=== PATIENT | female | born 1960 | race Caucasian/White ===

== ENCOUNTER 2017-08-12 09:51 | Emergency (ER) | payer MEDICARE ==
--- NOTE | 2017-08-12 11:11 | RAD ---
LEFT HIP 2 VIEWS: Date: 08/12/17 HISTORY: Injury, fall, left hip pain. FINDINGS/IMPRESSION: A left hip arthroplasty is present and in good position and alignment. No definite fracture or disloc ation is identified. POS: ISSAC
== END 2017-08-12 11:00 | disposition home or self-care (01) ==
LOC: ERS 09:51
DX: M62.838 Other muscle spasm (principal); E11.9 Type 2 diabetes mellitus without complications; E78.5 Hyperlipidemia, unspecified; I10 Essential (primary) hypertension; W01.0XXA Fall on same level from slipping, tripping and stumbling without subsequent striking against object, initial encounter

== ENCOUNTER 2019-06-28 13:08 | Outpatient (CLI) | payer MEDICARE ==
--- NOTE | 2019-07-10 19:59 | ULT ---
LOWER EXTREMITY ARTERIAL EVALUATION USING DOPPLER WAVEFORM ANALYSIS AND SEGMENTAL LIMB PRESSURES 06/28/19 INDICATION: Cellulitis and skin changes in both lower legs with history of diabetes, dyslipidemia and hypertensio n and no other symptoms. Right leg revealed slightly diminished waveform at the femoral level; however, the posterior tibial a nd dorsalis pedis waveforms were normal. The ankle-arm index was 1.17 mid DP. The posterior tibial co uld not be compressed suggesting calcification of this vessel. Toe-brachial index was normal. Left lower extremity demonstrates well preserved waveforms at all levels with an ankle-arm index of 1 .05. Toe-brachial index could not be obtained. Overall, the patient appears to have well preserved circulation to the lower extremities with some ca lcified vessels which could be consistent with her history of diabetes mellitus. Once again, overall circulation appears well preserved.
== END 2019-06-28 13:09 | disposition home or self-care (01) ==
LOC: ULT 13:08
PROVIDERS: ATTEND Family Medicine
DX: I73.9 Peripheral vascular disease, unspecified (principal); R60.9 Edema, unspecified
CPT/HCPCS: 93922

== ENCOUNTER 2020-03-31 10:23 | Outpatient (CLI) | payer MEDICARE ==
--- NOTE | 2020-04-07 09:50 | MMO ---
Bilateral MAMMO Bilat Screen [facility]. CLINICAL HISTORY: Patient is 59 years old and is seen for screening. The patient has no family history of breast cancer. The patient has a history of other cancer. VIEWS: The views performed were: bilateral craniocaudal with tomosynthesis and bilateral mediolateral oblique with tomosynthesis. FILMS COMPARED: The present examination has been compared to prior imaging studies performed at [facility] on 08/06/2009, at [facility] on 08/31/2005, and at [facility] on 11/05/2015 and 01/23/2017. This study has been interpreted with the assistance of computer-aided detection. MAMMOGRAM FINDINGS: The breasts are almost entirely fat. There is a new 15 mm mass density retroareolar right breast. In the left breast, there are no suspicious masses, calcifications or areas of architectural distortion. IMPRESSION: FINDING IN THE RIGHT BREAST REQUIRES ADDITIONAL EVALUATION. AN ULTRASOUND EXAM IS RECOMMENDED. THE RESULTS OF THIS EXAM WERE SENT TO THE PATIENT. ACR BI-RADS Category 0 - Incomplete: Need additional imaging evaluation. [facility] will notify the patient of the need for additional imaging services. MAMMOGRAPHY NOTE: 1. A negative mammogram report should not delay a biopsy if a dominant of clinically suspicious mass is present. 2. Approximately 10% to 15% of breast cancers are not detected by mammography. 3. Adenosis and dense breasts may obscure an underlying neoplasm. Reported by: DILLON DURON MD Electonically Signed: [id number]
== END 2020-03-31 10:24 | disposition home or self-care (01) ==
LOC: BICMAMMO 10:23
PROVIDERS: ATTEND Nurse Practitioner Family
DX: Z12.31 Encounter for screening mammogram for malignant neoplasm of breast (principal); N63.10 Unspecified lump in the right breast, unspecified quadrant; Z85.89 Personal history of malignant neoplasm of other organs and systems
CPT/HCPCS: 77063; 77067

== ENCOUNTER 2020-04-13 10:25 | Outpatient (CLI) | payer MEDICARE ==
--- NOTE | 2020-04-13 12:25 | ULT ---
RIGHT BREAST ULTRASOUND: Date: 04/13/2020 HISTORY: Abnormal mammogram of 03/31/2020. FINDINGS: Sonographic evaluation of the retroareolar aspect of the right breast demonstrates a 2.0 cm cyst earl esponding to the mammographic abnormality. IMPRESSION: BI-RADS Category 2 - Benign findings. Return to annual mammographic screening. POS: OFF
== END 2020-04-13 10:26 | disposition home or self-care (01) ==
LOC: BICULT 10:25
PROVIDERS: ATTEND Nurse Practitioner Family
DX: N63.10 Unspecified lump in the right breast, unspecified quadrant (principal)

== ENCOUNTER 2021-03-14 02:21 | Inpatient (IN) | payer MEDICARE ==
[2021-03-14 02:57] LABS: Actual Bicarbonate (HCO3a) 14.2 mEq/L (22-28); Analyzer IN Cardio ER; Base Excess (BEa) -9.1 mEq/L (-2.0 to +3.0); Calcium, Ionized (arterial) 1.14 mmol/L (1.12-1.30); Carboxyhemoglobin (COHb) 0.5 gm% (0.0-3.0); Hemoglobin (Hb) 16.8 g/dL (12.0-16.0); O2 Tension (PaO2), arterial 87.2 mmHg (> 80.0); Potassium - ABG Lab 6.19 mmol/L (3.70-5.30); pH, Arterial 7.36 (7.35-7.45)
[2021-03-14 02:59] LABS: CO2 Tension 25.8 mmHg (35.0-45.0)
[2021-03-14 03:00] LABS: Puncture Site LRA
[2021-03-14 03:02] LABS: Hemoglobin 17.5 g/dL (12.0-16.0); Mean Corpuscular HGB CONC 30.1 g/dL (32.0-36.0); Mean Corpuscular Hemoglobin 28.9 pg (27.0-31.0); Mean Platelet Volume 8.3 fL (7.4-10.4); Platelet Count 382 thou/uL (130-400); Red Blood Cell (RBC) Count 6.06 mill/uL (4.20-5.40)
[2021-03-14 03:12] LABS: Band 10 % (5-11); Lymphocytes 15 % (21-51); MDiff Complete? YES; Monocytes 9 % (0-10); Neutrophil 66 % (42-75)
[2021-03-14 03:24] LABS: ALT (SGPT) 19 U/L (8-55)
[2021-03-14 03:29] LABS: AST (SGOT) 66 U/L (5-34); Albumin 3.7 g/dL (3.4-4.8); Alkaline Phosphatase 137 U/L (40-110); Anion Gap 30 mmol/L (10-20); BUN (Urea Nitrogen) 62 mg/dL (9.8-20.1); Bilirubin, Total 0.7 mg/dL (0.2-1.2); Calc. Creatinine Clearance 0 mL/min (70-130); Calcium 9.6 mg/dL (7.8-10.44); Carbon Dioxide 12 mmol/L (23-31); Chloride 111 mmol/L (98-107); Globulin 3.9 g/dL (2.4-3.5); Glucose 156 mg/dL (80-115); Potassium 7.2 mmol/L (3.5-5.1); Protein, Total 7.6 g/dL (5.8-8.1); Sodium 146 mmol/L (136-145)
[2021-03-14 03:44] LABS: Bilirubin Moderate (Negative); Blood, Urine Large (Negative); Glucose, Urine (Dipstick) Negative (Negative); Ketone, Urine Trace mg/dL (Negative); Leukocyte Moderate (Negative); Nitrite Negative (Negative); Protein, Urine (Dipstick) > or equal to 300 mg/dL (Neg-Trace); Urobilinogen 0.2 mg/dL (Less than 2); pH, Urine 6.5 (5.0-9.0)
[2021-03-14 03:50] LABS: Clarity Extra Turbid (Clear); WBC/HPF Greater than 50 HPF (0-3)
[2021-03-14 03:51] LABS: Bacteria/HPF 4+ HPF (None Seen); Squamous Epithelial 0-3 HPF (0-3)
[2021-03-14] MEDS ORDERED: Calcium Gluc 4.6 MEQ/10 ML (100 MG/ML) ONE (03:53)
[2021-03-14] MEDS ORDERED: Dextrose 50% Abboject 50 ML SYRINGE ONE (03:53)
[2021-03-14] MEDS ORDERED: Insulin Regular 300 UNITS/3 ML VIAL ONE (03:53)
[2021-03-14] MEDS ORDERED: Sodium Bicarb 50 MEQ/50 ML Abboject 8.4% SYRINGE ONE (03:53)
[2021-03-14 04:08] LABS: CKMB 6.1 ng/mL (0-6.6)
[2021-03-14 04:27] LABS: Anion Gap 27 mmol/L (10-20); BUN (Urea Nitrogen) 66 mg/dL (9.8-20.1); Calc. Creatinine Clearance 0 mL/min (70-130); Calcium 9.7 mg/dL (7.8-10.44); Carbon Dioxide 15 mmol/L (23-31); Chloride 112 mmol/L (98-107); Glucose 168 mg/dL (80-115); Sodium 147 mmol/L (136-145)
[2021-03-14] MEDS ORDERED: Cefepime 2 GM VIAL ONE (04:28)
[2021-03-14 04:30] LABS: Potassium 6.7 mmol/L (3.5-5.1)
[2021-03-14] MEDS ORDERED: VANCOMYCIN 2 GRAM/400 ML BAG 2 GM in Premix Bag 1 BAG IVPB SCH (05:15)
[2021-03-14] MEDS ORDERED: Dextrose 5% in Water 1,000 ML IV PRN (05:24)
[2021-03-14] MEDS ORDERED: Dextrose 50% Abboject 50 ML SYRINGE SLOW IVP PRN (05:24)
[2021-03-14] MEDS ORDERED: Lactated Ringer's 1,000 ML IV SCH ×4 (05:45→16:45)
[2021-03-14 05:54] LABS: Troponin I 0.584 ng/mL (< 0.028)
[2021-03-14 06:15] LABS: Lactic Acid 2.2 mmol/L (0.5-2.2)
[2021-03-14 06:23] LABS: Anion Gap 20 mmol/L (10-20); BUN (Urea Nitrogen) 63 mg/dL (9.8-20.1); Calc. Creatinine Clearance 0 mL/min (70-130); Calcium 8.5 mg/dL (7.8-10.44); Carbon Dioxide 17 mmol/L (23-31); Chloride 115 mmol/L (98-107); Glucose 216 mg/dL (80-115); Potassium 5.5 mmol/L (3.5-5.1); Sodium 146 mmol/L (136-145)
[2021-03-14 06:26] LABS: SARS-CoV-2 NAA Rapid Test Not Detected (NotDetected)
[2021-03-14] MEDS ORDERED: Furosemide 40 MG/4 ML VIAL SLOW IVP SCH (08:30)
[2021-03-14] MEDS ORDERED: Pantoprazole 40 MG VIAL ONE (08:38)
[2021-03-14] MEDS ORDERED: Furosemide 40 MG/4 ML VIAL ONE (08:38)
[2021-03-14] MEDS: Pantoprazole 40 MG VIAL IVP SCH (08:52)
[2021-03-14] MEDS ORDERED: Enoxaparin Sodium 30 MG/0.3 ML SYRINGE ONE (08:59)
[2021-03-14] MEDS: Enoxaparin Sodium 30 MG/0.3 ML SYRINGE SC SCH (09:02)
[2021-03-14] MEDS ORDERED: HumaLOG 300 UNITS/3 ML VIAL ONE (09:11)
[2021-03-14] MEDS: HumaLOG 300 UNITS/3 ML VIAL SC PRN ×2 (09:14→19:51)
[2021-03-14] MEDS ORDERED: Acetaminophen 650 MG Suppository ONE (09:26)
[2021-03-14] MEDS: Acetaminophen 650 MG Suppository PR PRN ×2 (09:36→19:50)
[2021-03-14 10:18] LABS: Troponin I 1.012 ng/mL (< 0.028)
[2021-03-14] MEDS ORDERED: Vancomycin HCl 750 MG in Premix Bag 1 BAG IVPB SCH (10:30)
[2021-03-14 13:24] LABS: Anion Gap 20 mmol/L (10-20); BUN (Urea Nitrogen) 68 mg/dL (9.8-20.1); Calc. Creatinine Clearance 29 mL/min (70-130); Carbon Dioxide 17 mmol/L (23-31); Chloride 114 mmol/L (98-107); Glucose 206 mg/dL (80-115); Potassium 5.3 mmol/L (3.5-5.1); Sodium 146 mmol/L (136-145)
[2021-03-14 13:36] LABS: CKMB 39.1 ng/mL (0-6.6)
[2021-03-14 13:43] LABS: Actual Bicarbonate (HCO3a) 17.6 mEq/L (22-28); Base Excess (BEa) -6.2 mEq/L (-2.0 to +3.0); CO2 Tension 30.3 mmHg (35.0-45.0); Calcium, Ionized (arterial) 1.12 mmol/L (1.12-1.30); Carboxyhemoglobin (COHb) 0.6 gm% (0.0-3.0); Hemoglobin (Hb) 14.8 g/dL (12.0-16.0); Potassium - ABG Lab 5.26 mmol/L (3.70-5.30); pH, Arterial 7.38 (7.35-7.45)
[2021-03-14 13:52] LABS: O2 Tension (PaO2), arterial 58.1 mmHg (> 80.0)
[2021-03-14 13:53] LABS: ALV-art Gradient 189.225 mmHg (0-20); Puncture Site LRA
[2021-03-14 18:18] LABS: Anion Gap 26 mmol/L (10-20); BUN (Urea Nitrogen) 71 mg/dL (9.8-20.1); Calc. Creatinine Clearance 22 mL/min (70-130); Calcium 8.3 mg/dL (7.8-10.44); Carbon Dioxide 12 mmol/L (23-31); Chloride 113 mmol/L (98-107); Glucose 212 mg/dL (80-115); Potassium 6.3 mmol/L (3.5-5.1); Sodium 145 mmol/L (136-145)
[2021-03-14 19:07] LABS: Anion Gap 23 mmol/L (10-20); BUN (Urea Nitrogen) 74 mg/dL (9.8-20.1); Calc. Creatinine Clearance 22 mL/min (70-130); Calcium 8.6 mg/dL (7.8-10.44); Carbon Dioxide 15 mmol/L (23-31); Chloride 114 mmol/L (98-107); Glucose 245 mg/dL (80-115); Potassium 5.6 mmol/L (3.5-5.1); Sodium 146 mmol/L (136-145)
[2021-03-15] MEDS: HumaLOG 300 UNITS/3 ML VIAL SC PRN ×5 (00:28→23:56)
[2021-03-15] MEDS: Cefepime 2 GM in Sodium Chloride 0.9% 100 ML IVPB SCH (02:52)
[2021-03-15] MEDS ORDERED: VANCOMYCIN IVPB SCH (03:00)
[2021-03-15 07:09] LABS: Hemoglobin 15.2 g/dL (12.0-16.0); Mean Corpuscular Volume 96.6 fL (78.0-98.0); Mean Platelet Volume 8.7 fL (7.4-10.4); Platelet Count 192 thou/uL (130-400); RBC Distribution Width 12.9 % (11.5-14.5); Red Blood Cell (RBC) Count 5.07 mill/uL (4.20-5.40); White Blood Cell (WBC) Count 18.3 thou/uL (4.8-10.8)
[2021-03-15 07:23] LABS: ALT (SGPT) 145 U/L (8-55); AST (SGOT) 372 U/L (5-34); Albumin 3.1 g/dL (3.4-4.8); Alkaline Phosphatase 93 U/L (40-110); Anion Gap 20 mmol/L (10-20); BUN (Urea Nitrogen) 82 mg/dL (9.8-20.1); Bilirubin, Total 0.7 mg/dL (0.2-1.2); Calc. Creatinine Clearance 27 mL/min (70-130); Calcium 8.7 mg/dL (7.8-10.44); Carbon Dioxide 20 mmol/L (23-31); Chloride 115 mmol/L (98-107); Globulin 3.1 g/dL (2.4-3.5); Glucose 180 mg/dL (80-115); Potassium 5.4 mmol/L (3.5-5.1); Protein, Total 6.2 g/dL (5.8-8.1); Sodium 150 mmol/L (136-145)
[2021-03-15 07:40] LABS: #Lymphocytes 2.5 thou/uL (1.20-3.40); #Neutrophils 14.7 thou/uL (1.40-6.50); %Basophils 0.2 % (0.0-1.0); %Eosinophils 0.1 % (0.0-10.0); %Lymphocytes 13.5 % (21.0-51.0); %Monocytes 5.6 % (0.0-10.0); %Neutrophils 80.6 % (42.0-75.0); MDiff Complete? YES
[2021-03-15 07:41] LABS: Band 9 % (5-11); Eosinophils 1 % (0-10); Lymphocytes 17 % (21-51); Monocytes 3 % (0-10); Neutrophil 70 % (42-75); Platelet Morphology Comment Appears Adequate; RBC Morphology Normal
[2021-03-15] MEDS: Enoxaparin Sodium 30 MG/0.3 ML SYRINGE SC SCH (08:00)
[2021-03-15] MEDS: Pantoprazole 40 MG VIAL IVP SCH (08:00)
[2021-03-15] MEDS ORDERED: Nystatin Powder 15 GM BOT TOP PRN (09:39)
[2021-03-15] MEDS ORDERED: Lactated Ringer's 1,000 ML IV SCH (10:30)
[2021-03-15 11:28] LABS: Vancomycin, Random 18.4 ug/mL (See Comment)
[2021-03-15] MEDS ORDERED: Sodium Bicarbonate 150 MEQ in Dextrose 5% in Water 1,000 ML IV SCH (12:00)
[2021-03-15 15:17] LABS: Creatinine, Urine 46.64 mg/dL (47-110)
[2021-03-15] MEDS ORDERED: Sodium Chloride 0.9% 1,000 ML IV SCH (16:00)
[2021-03-15 16:42] LABS: Anion Gap 17 mmol/L (10-20); Calc. Creatinine Clearance 28 mL/min (70-130); Calcium 9.1 mg/dL (7.8-10.44); Carbon Dioxide 22 mmol/L (23-31); Chloride 115 mmol/L (98-107); Glucose 269 mg/dL (80-115); Potassium 4.9 mmol/L (3.5-5.1); Sodium 149 mmol/L (136-145)
[2021-03-15 16:45] LABS: BUN (Urea Nitrogen) 83 mg/dL (9.8-20.1)
[2021-03-15] MEDS: Dextrose 5% in Water 1,000 ML IV SCH (16:54)
[2021-03-15 17:04] LABS: CK (CPK) 5022 U/L (29-168)
[2021-03-15] MEDS ORDERED: Enoxaparin Sodium 40 MG/0.4 ML SYRINGE SC SCH (21:00)
[2021-03-15] MEDS: Sodium Bicarbonate 50 MEQ in Sodium Chloride 0.45% 1,000 ML IV SCH (22:10)
[2021-03-16] MEDS: Dextrose 5% in Water 1,000 ML IV SCH ×5 (02:02→20:45)
[2021-03-16] MEDS: Cefepime 2 GM in Sodium Chloride 0.9% 100 ML IVPB SCH (02:04)
[2021-03-16] MEDS: HumaLOG 300 UNITS/3 ML VIAL SC PRN ×3 (04:05→20:45)
[2021-03-16 04:23] LABS: #Lymphocytes 1.5 thou/uL (1.20-3.40); #Monocytes 0.9 thou/uL (0.11-0.59); #Neutrophils 12.1 thou/uL (1.40-6.50); %Basophils 0.2 % (0.0-1.0); %Eosinophils 0.1 % (0.0-10.0); %Lymphocytes 10.3 % (21.0-51.0); %Monocytes 6.3 % (0.0-10.0); %Neutrophils 83.1 % (42.0-75.0); Hemoglobin 13.3 g/dL (12.0-16.0); Mean Corpuscular HGB CONC 31.4 g/dL (32.0-36.0); Mean Corpuscular Hemoglobin 30.3 pg (27.0-31.0); Mean Corpuscular Volume 96.3 fL (78.0-98.0); Mean Platelet Volume 8.8 fL (7.4-10.4); Platelet Count 152 thou/uL (130-400); RBC Distribution Width 12.6 % (11.5-14.5); Red Blood Cell (RBC) Count 4.38 mill/uL (4.20-5.40); White Blood Cell (WBC) Count 14.6 thou/uL (4.8-10.8)
[2021-03-16 04:37] LABS: ALT (SGPT) 193 U/L (8-55); AST (SGOT) 305 U/L (5-34); Albumin 2.9 g/dL (3.4-4.8); Alkaline Phosphatase 87 U/L (40-110); Anion Gap 20 mmol/L (10-20); BUN (Urea Nitrogen) 75 mg/dL (9.8-20.1); Bilirubin, Total 0.6 mg/dL (0.2-1.2); Calc. Creatinine Clearance 32 mL/min (70-130); Calcium 8.4 mg/dL (7.8-10.44); Carbon Dioxide 23 mmol/L (23-31); Chloride 111 mmol/L (98-107); Globulin 2.9 g/dL (2.4-3.5); Glucose 219 mg/dL (80-115); Potassium 4.3 mmol/L (3.5-5.1); Protein, Total 5.8 g/dL (5.8-8.1); Sodium 150 mmol/L (136-145)
[2021-03-16 04:59] LABS: HBCM Index 0.04 S/CO (0-0.79); HBSAg Index 0.14 S/CO (0-0.99); HIV (1/2) Antibody/Antigen Non-Reactive (NonReactive); HIV 1/2 INDEX 0.11 S/CO (<1.00); Hep A IgM AB Non-Reactive (NonReactive); Hep A IgM S/CO 0.07 S/CO (0-0.79); Hep B Surf Ag Non-Reactive S/CO (NonReactive); Hep C IgG Ab Non-Reactive (NonReactive); Hep C Index 0.08 S/CO (0-0.79); Hepatitis B Core IgM Abs Non-Reactive (NonReactive)
[2021-03-16 05:21] LABS: Syphilis Antibody Nonreactive (Nonreactive); Syphilis Antibody Index 0.11 S/CO (<1.00 Non-Reactive)
[2021-03-16] MEDS: Enoxaparin Sodium 60 MG/0.6 ML SYRINGE SC SCH (07:15)
[2021-03-16] MEDS: Pantoprazole 40 MG VIAL IVP SCH (07:15)
[2021-03-16 08:05] LABS: Vancomycin, Random 12.4 ug/mL (See Comment)
[2021-03-16] MEDS ORDERED: DULoxetine 60 MG CAP PO SCH (09:00)
[2021-03-16] MEDS ORDERED: Vancomycin 1 GM in Premix Bag 1 BAG IVPB SCH (11:00)
[2021-03-16 14:31] LABS: Anion Gap 16 mmol/L (10-20); BUN (Urea Nitrogen) 68 mg/dL (9.8-20.1); Calc. Creatinine Clearance 35 mL/min (70-130); Calcium 7.9 mg/dL (7.8-10.44); Carbon Dioxide 24 mmol/L (23-31); Chloride 109 mmol/L (98-107); Glucose 272 mg/dL (80-115); Sodium 145 mmol/L (136-145)
[2021-03-16] MEDS: Sodium Bicarbonate 50 MEQ in Sodium Chloride 0.45% 1,000 ML IV SCH (19:44)
[2021-03-16 20:17] LABS: Anion Gap 14 mmol/L (10-20); BUN (Urea Nitrogen) 64 mg/dL (9.8-20.1); Calc. Creatinine Clearance 39 mL/min (70-130); Calcium 7.8 mg/dL (7.8-10.44); Carbon Dioxide 26 mmol/L (23-31); Chloride 107 mmol/L (98-107); Glucose 286 mg/dL (80-115); Potassium 3.7 mmol/L (3.5-5.1); Sodium 143 mmol/L (136-145)
[2021-03-17] MEDS: HumaLOG 300 UNITS/3 ML VIAL SC PRN ×5 (00:42→23:55)
[2021-03-17] MEDS: Cefepime 2 GM in Sodium Chloride 0.9% 100 ML IVPB SCH (02:42)
[2021-03-17 04:44] LABS: ALT (SGPT) 156 U/L (8-55); AST (SGOT) 159 U/L (5-34); Albumin 2.5 g/dL (3.4-4.8); Alkaline Phosphatase 78 U/L (40-110); Anion Gap 15 mmol/L (10-20); BUN (Urea Nitrogen) 57 mg/dL (9.8-20.1); Bilirubin, Total 0.5 mg/dL (0.2-1.2); CK (CPK) 1350 U/L (29-168); Calc. Creatinine Clearance 46 mL/min (70-130); Calcium 7.9 mg/dL (7.8-10.44); Carbon Dioxide 24 mmol/L (23-31); Chloride 107 mmol/L (98-107); Globulin 2.5 g/dL (2.4-3.5); Glucose 205 mg/dL (80-115); Potassium 3.5 mmol/L (3.5-5.1); Sodium 142 mmol/L (136-145)
[2021-03-17 04:45] LABS: #Eosinphils 0.1 thou/uL (0.0-0.7); #Lymphocytes 1.4 thou/uL (1.20-3.40); #Monocytes 0.6 thou/uL (0.11-0.59); #Neutrophils 6.9 thou/uL (1.40-6.50); %Eosinophils 1.4 % (0.0-10.0); %Lymphocytes 15.6 % (21.0-51.0); %Monocytes 6.5 % (0.0-10.0); %Neutrophils 76.5 % (42.0-75.0); Hemoglobin 11.5 g/dL (12.0-16.0); Mean Corpuscular HGB CONC 32.5 g/dL (32.0-36.0); Mean Corpuscular Hemoglobin 30.8 pg (27.0-31.0); Mean Corpuscular Volume 94.7 fL (78.0-98.0); Mean Platelet Volume 9.1 fL (7.4-10.4); Platelet Count 133 thou/uL (130-400); RBC Distribution Width 12.3 % (11.5-14.5); Red Blood Cell (RBC) Count 3.72 mill/uL (4.20-5.40); White Blood Cell (WBC) Count 9.1 thou/uL (4.8-10.8)
[2021-03-17] MEDS: Sodium Bicarbonate 50 MEQ in Sodium Chloride 0.45% 1,000 ML IV SCH ×2 (05:34→19:54)
[2021-03-17] MEDS: Pantoprazole 40 MG VIAL IVP SCH (07:16)
[2021-03-17] MEDS: Enoxaparin Sodium 60 MG/0.6 ML SYRINGE SC SCH (07:16)
[2021-03-17] MEDS: Dextrose 5% in Water 1,000 ML IV SCH ×2 (07:17→19:54)
[2021-03-17 11:17] LABS: Vancomycin, Random 17.9 ug/mL (See Comment)
[2021-03-17] MEDS ORDERED: Vancomycin 1 GM in Premix Bag 1 BAG IVPB SCH (13:00)
[2021-03-18] MEDS: Dextrose 5% in Water 1,000 ML IV SCH (03:36)
[2021-03-18] MEDS: Sodium Bicarbonate 50 MEQ in Sodium Chloride 0.45% 1,000 ML IV SCH (03:37)
[2021-03-18] MEDS: Cefepime 2 GM in Sodium Chloride 0.9% 100 ML IVPB SCH (03:37)
[2021-03-18 04:12] LABS: #Eosinphils 0.2 thou/uL (0.0-0.7); #Lymphocytes 0.9 thou/uL (1.20-3.40); #Monocytes 0.5 thou/uL (0.11-0.59); %Basophils 0.3 % (0.0-1.0); %Lymphocytes 10.1 % (21.0-51.0); %Monocytes 6.1 % (0.0-10.0); %Neutrophils 81.6 % (42.0-75.0); Hemoglobin 11.5 g/dL (12.0-16.0); Mean Corpuscular HGB CONC 32.7 g/dL (32.0-36.0); Mean Corpuscular Hemoglobin 30.5 pg (27.0-31.0); Mean Corpuscular Volume 93.4 fL (78.0-98.0); Mean Platelet Volume 9.1 fL (7.4-10.4); Platelet Count 161 thou/uL (130-400); RBC Distribution Width 12.1 % (11.5-14.5); Red Blood Cell (RBC) Count 3.78 mill/uL (4.20-5.40); White Blood Cell (WBC) Count 8.6 thou/uL (4.8-10.8)
[2021-03-18 04:32] LABS: ALT (SGPT) 121 U/L (8-55); AST (SGOT) 101 U/L (5-34); Albumin 2.7 g/dL (3.4-4.8); Alkaline Phosphatase 81 U/L (40-110); Anion Gap 12 mmol/L (10-20); BUN (Urea Nitrogen) 44 mg/dL (9.8-20.1); Bilirubin, Total 0.5 mg/dL (0.2-1.2); CK (CPK) 1292 U/L (29-168); Calc. Creatinine Clearance 55 mL/min (70-130); Carbon Dioxide 29 mmol/L (23-31); Chloride 102 mmol/L (98-107); Globulin 2.5 g/dL (2.4-3.5); Glucose 180 mg/dL (80-115); Potassium 3.3 mmol/L (3.5-5.1); Protein, Total 5.2 g/dL (5.8-8.1); Sodium 140 mmol/L (136-145)
[2021-03-18] MEDS: HumaLOG 300 UNITS/3 ML VIAL SC PRN ×2 (04:54→22:57)
[2021-03-18] MEDS: Pantoprazole 40 MG VIAL IVP SCH (07:34)
[2021-03-18] MEDS: Enoxaparin Sodium 60 MG/0.6 ML SYRINGE SC SCH (07:34)
[2021-03-18] MEDS: DULoxetine 30 MG CAP PO SCH (07:34)
[2021-03-18] MEDS: D5 1/2 NS w/20 mEq KCL 1,000 ML IV SCH ×3 (07:39→22:58)
[2021-03-18] MEDS ORDERED: Non-Formulary Item 1 EACH (Dulaglutide [Trulicity] 0.75 MG/0.5 ML Pen.Injctr) SC SCH (10:30)
[2021-03-18] MEDS ORDERED: Losartan 25 MG TAB PO SCH (10:30)
[2021-03-18 19:24] LABS: Anion Gap 13 mmol/L (10-20); BUN (Urea Nitrogen) 37 mg/dL (9.8-20.1); Calc. Creatinine Clearance 59 mL/min (70-130); Calcium 8.9 mg/dL (7.8-10.44); Carbon Dioxide 24 mmol/L (23-31); Chloride 105 mmol/L (98-107); Glucose 289 mg/dL (80-115); Potassium 4.3 mmol/L (3.5-5.1); Sodium 138 mmol/L (136-145)
[2021-03-19] MEDS: HumaLOG 300 UNITS/3 ML VIAL SC PRN ×3 (04:55→21:46)
[2021-03-19] MEDS: D5 1/2 NS w/20 mEq KCL 1,000 ML IV SCH ×4 (06:06→21:44)
[2021-03-19] MEDS ORDERED: Losartan 25 MG TAB PO SCH (09:00)
[2021-03-19 09:44] LABS: #Eosinphils 0.2 thou/uL (0.0-0.7); #Lymphocytes 0.9 thou/uL (1.20-3.40); #Monocytes 0.7 thou/uL (0.11-0.59); #Neutrophils 5.6 thou/uL (1.40-6.50); %Basophils 0.3 % (0.0-1.0); %Eosinophils 2.9 % (0.0-10.0); %Lymphocytes 11.6 % (21.0-51.0); %Monocytes 9.5 % (0.0-10.0); %Neutrophils 75.6 % (42.0-75.0); Hemoglobin 11.9 g/dL (12.0-16.0); Mean Corpuscular HGB CONC 34.2 g/dL (32.0-36.0); Mean Corpuscular Volume 93.5 fL (78.0-98.0); Mean Platelet Volume 8.9 fL (7.4-10.4); Platelet Count 181 thou/uL (130-400); RBC Distribution Width 12.3 % (11.5-14.5); Red Blood Cell (RBC) Count 3.73 mill/uL (4.20-5.40); White Blood Cell (WBC) Count 7.4 thou/uL (4.8-10.8)
[2021-03-19] MEDS: Pantoprazole 40 MG VIAL IVP SCH (09:50)
[2021-03-19] MEDS: Enoxaparin Sodium 60 MG/0.6 ML SYRINGE SC SCH (09:50)
[2021-03-19] MEDS: Amlodipine 5 MG TAB PO SCH (09:52)
[2021-03-19] MEDS: DULoxetine 30 MG CAP PO SCH (09:53)
[2021-03-19 10:14] LABS: ALT (SGPT) 80 U/L (8-55); AST (SGOT) 58 U/L (5-34); Albumin 2.6 g/dL (3.4-4.8); Alkaline Phosphatase 88 U/L (40-110); Anion Gap 10 mmol/L (10-20); BUN (Urea Nitrogen) 36 mg/dL (9.8-20.1); Bilirubin, Total 0.6 mg/dL (0.2-1.2); CK (CPK) 375 U/L (29-168); Calc. Creatinine Clearance 64 mL/min (70-130); Calcium 8.3 mg/dL (7.8-10.44); Carbon Dioxide 29 mmol/L (23-31); Chloride 104 mmol/L (98-107); Globulin 2.6 g/dL (2.4-3.5); Glucose 247 mg/dL (80-115); Protein, Total 5.2 g/dL (5.8-8.1); Sodium 139 mmol/L (136-145)
[2021-03-19 14:04] LABS: Phosphorus 2.1 mg/dL (2.3-4.7)
[2021-03-19 19:42] LABS: Amphetamine Not Detected (NotDetected); Barbiturates Screen Not Detected (NotDetected); Benzodiazepine Screen Not Detected (NotDetected); Cocaine Metabolite Screen Not Detected (NotDetected); Methadone Not Detected (NotDetected); Methamphetamine Not Detected (NotDetected); Opiate Screen Not Detected (NotDetected); Oxycodone Screen Not Detected (NotDetected); Phencyclidine (PCP) Not Detected (NotDetected); THC/Cannabinoid Screen Not Detected (NotDetected); Tricyclic Screen Not Detected (NotDetected)
[2021-03-20] MEDS: HumaLOG 300 UNITS/3 ML VIAL SC PRN ×5 (00:53→16:34)
[2021-03-20 05:14] LABS: Anion Gap 11 mmol/L (10-20); BUN (Urea Nitrogen) 30 mg/dL (9.8-20.1); Calc. Creatinine Clearance 70 mL/min (70-130); Calcium 7.5 mg/dL (7.8-10.44); Carbon Dioxide 26 mmol/L (23-31); Chloride 107 mmol/L (98-107); Glucose 265 mg/dL (80-115); Potassium 4.6 mmol/L (3.5-5.1); Sodium 139 mmol/L (136-145)
[2021-03-20] MEDS: Enoxaparin Sodium 60 MG/0.6 ML SYRINGE SC SCH (09:59)
[2021-03-20] MEDS: D5 1/2 NS w/20 mEq KCL 1,000 ML IV SCH (09:59)
[2021-03-20] MEDS: Pantoprazole 40 MG VIAL IVP SCH (09:59)
[2021-03-20] MEDS: Amlodipine 5 MG TAB PO SCH (10:00)
[2021-03-20] MEDS: DULoxetine 30 MG CAP PO SCH (10:00)
[2021-03-20] MEDS ORDERED: Lorazepam 2 MG/ML VIAL SLOW IVP SCH (10:30)
[2021-03-20 16:38] LABS: Troponin I 0.024 ng/mL (< 0.028)
[2021-03-21] MEDS: D5 1/2 NS w/20 mEq KCL 1,000 ML IV SCH ×3 (01:04→14:53)
[2021-03-21] MEDS: HumaLOG 300 UNITS/3 ML VIAL SC PRN ×3 (07:22→17:23)
[2021-03-21 08:02] LABS: #Eosinphils 0.3 thou/uL (0.0-0.7); #Lymphocytes 1.5 thou/uL (1.20-3.40); #Monocytes 0.7 thou/uL (0.11-0.59); %Basophils 0.5 % (0.0-1.0); %Eosinophils 4.1 % (0.0-10.0); %Lymphocytes 23.2 % (21.0-51.0); %Neutrophils 62.2 % (42.0-75.0); Mean Corpuscular HGB CONC 33.9 g/dL (32.0-36.0); Mean Corpuscular Hemoglobin 31.2 pg (27.0-31.0); Mean Corpuscular Volume 92.2 fL (78.0-98.0); Mean Platelet Volume 8.8 fL (7.4-10.4); Platelet Count 244 thou/uL (130-400); RBC Distribution Width 12.2 % (11.5-14.5); Red Blood Cell (RBC) Count 3.86 mill/uL (4.20-5.40); White Blood Cell (WBC) Count 6.5 thou/uL (4.8-10.8)
[2021-03-21 08:28] LABS: Anion Gap 13 mmol/L (10-20); BUN (Urea Nitrogen) 28 mg/dL (9.8-20.1); Calc. Creatinine Clearance 67 mL/min (70-130); Calcium 8.8 mg/dL (7.8-10.44); Carbon Dioxide 25 mmol/L (23-31); Chloride 107 mmol/L (98-107); Glucose 223 mg/dL (80-115); Potassium 4.5 mmol/L (3.5-5.1); Sodium 140 mmol/L (136-145)
[2021-03-21] MEDS: Pantoprazole 40 MG VIAL IVP SCH (09:41)
[2021-03-21] MEDS: Enoxaparin Sodium 60 MG/0.6 ML SYRINGE SC SCH (09:41)
[2021-03-21] MEDS: Amlodipine 5 MG TAB PO SCH (09:42)
[2021-03-21] MEDS: DULoxetine 30 MG CAP PO SCH (09:42)
[2021-03-21] MEDS: Lorazepam 2 MG/ML VIAL SLOW IVP SCH ×3 (10:22→21:48)
[2021-03-21 17:21] LABS: SARS-CoV-2 PCR by NAA Not Detected (NotDetected)
[2021-03-22] MEDS: D5 1/2 NS w/20 mEq KCL 1,000 ML IV SCH (01:50)
[2021-03-22] MEDS: HumaLOG 300 UNITS/3 ML VIAL SC PRN (04:08)
[2021-03-22] MEDS: hydrALAZINE 20 MG/ML VIAL SLOW IVP PRN ×2 (04:08→09:06)
[2021-03-22 06:02] LABS: Anion Gap 16 mmol/L (10-20); BUN (Urea Nitrogen) 25 mg/dL (9.8-20.1); Calc. Creatinine Clearance 67 mL/min (70-130); Carbon Dioxide 21 mmol/L (23-31); Chloride 108 mmol/L (98-107); Glucose 217 mg/dL (80-115); Potassium 5.2 mmol/L (3.5-5.1); Sodium 140 mmol/L (136-145)
[2021-03-22] MEDS: Enoxaparin Sodium 60 MG/0.6 ML SYRINGE SC SCH (09:01)
[2021-03-22] MEDS: Pantoprazole 40 MG VIAL IVP SCH (09:02)
[2021-03-22] MEDS: Lorazepam 2 MG/ML VIAL SLOW IVP SCH ×3 (09:03→21:40)
[2021-03-22] MEDS: Amlodipine 5 MG TAB PO SCH (09:05)
[2021-03-22] MEDS: DULoxetine 30 MG CAP PO SCH (09:05)
[2021-03-22] MEDS: Sodium Bicarbonate Tab 325 MG TAB PO SCH ×2 (10:12→21:40)
[2021-03-22] MEDS ORDERED: Amlodipine 5 MG TAB PER TUBE SCH (11:00)
[2021-03-22] MEDS ORDERED: Metoprolol Tartrate 50 MG TAB PER TUBE SCH (11:00)
[2021-03-22] MEDS: Metoprolol Tartrate 50 MG TAB PER TUBE SCH (21:40)
[2021-03-23 09:33] LABS: Anion Gap 15 mmol/L (10-20); BUN (Urea Nitrogen) 28 mg/dL (9.8-20.1); Calc. Creatinine Clearance 56 mL/min (70-130); Calcium 9.4 mg/dL (7.8-10.44); Carbon Dioxide 26 mmol/L (23-31); Chloride 107 mmol/L (98-107); Glucose 192 mg/dL (80-115); Potassium 4.6 mmol/L (3.5-5.1); Sodium 143 mmol/L (136-145)
[2021-03-23] MEDS: Amlodipine 5 MG TAB PER TUBE SCH (10:56)
[2021-03-23] MEDS: Lorazepam 2 MG/ML VIAL SLOW IVP SCH ×3 (10:57→21:33)
[2021-03-23] MEDS: DULoxetine 30 MG CAP PO SCH (10:57)
[2021-03-23] MEDS: Metoprolol Tartrate 50 MG TAB PER TUBE SCH ×2 (10:58→21:33)
[2021-03-23] MEDS: Sodium Bicarbonate Tab 325 MG TAB PO SCH ×2 (10:58→21:33)
[2021-03-23] MEDS: Pantoprazole 40 MG VIAL IVP SCH (11:10)
[2021-03-23] MEDS: Enoxaparin Sodium 60 MG/0.6 ML SYRINGE SC SCH (11:11)
[2021-03-23] MEDS: HumaLOG 300 UNITS/3 ML VIAL SC PRN (18:54)
[2021-03-23] MEDS: Enoxaparin Sodium 40 MG/0.4 ML SYRINGE SC SCH (21:32)
[2021-03-24 05:31] LABS: Anion Gap 15 mmol/L (10-20); BUN (Urea Nitrogen) 31 mg/dL (9.8-20.1); Calc. Creatinine Clearance 53 mL/min (70-130); Calcium 8.7 mg/dL (7.8-10.44); Carbon Dioxide 21 mmol/L (23-31); Chloride 108 mmol/L (98-107); Glucose 182 mg/dL (80-115); Potassium 4.5 mmol/L (3.5-5.1); Sodium 139 mmol/L (136-145)
[2021-03-24] MEDS: Sodium Bicarbonate 50 MEQ in Sodium Chloride 0.45% 1,000 ML IV SCH ×2 (06:40→18:36)
[2021-03-24] MEDS: DULoxetine 30 MG CAP PO SCH (07:20)
[2021-03-24] MEDS: Metoprolol Tartrate 50 MG TAB PER TUBE SCH ×2 (07:20→21:08)
[2021-03-24] MEDS: Amlodipine 5 MG TAB PER TUBE SCH (07:20)
[2021-03-24] MEDS: Sodium Bicarbonate Tab 325 MG TAB PO SCH ×2 (07:21→21:08)
[2021-03-24 09:15] VITALS: BMI 41.6
[2021-03-24] MEDS: Enoxaparin Sodium 40 MG/0.4 ML SYRINGE SC SCH ×2 (09:25→21:13)
[2021-03-24] MEDS: Lorazepam 2 MG/ML VIAL SLOW IVP SCH ×3 (09:26→21:10)
[2021-03-24] MEDS: Pantoprazole 40 MG VIAL IVP SCH (09:26)
[2021-03-25] MEDS: HumaLOG 300 UNITS/3 ML VIAL SC PRN ×2 (01:13→17:41)
[2021-03-25] MEDS ORDERED: Amlodipine 10 MG TAB PO SCH ×2 (06:15→09:00)
[2021-03-25 06:59] LABS: Platelet Count 252 thou/uL (130-400)
[2021-03-25 07:24] LABS: Anion Gap 12 mmol/L (10-20); BUN (Urea Nitrogen) 29 mg/dL (9.8-20.1); Calc. Creatinine Clearance 56 mL/min (70-130); Calcium 8.4 mg/dL (7.8-10.44); Carbon Dioxide 25 mmol/L (23-31); Chloride 109 mmol/L (98-107); Glucose 140 mg/dL (80-115); Sodium 142 mmol/L (136-145)
[2021-03-25] MEDS: Sodium Bicarbonate Tab 325 MG TAB PO SCH ×2 (09:18→20:09)
[2021-03-25] MEDS: DULoxetine 30 MG CAP PO SCH (09:19)
[2021-03-25] MEDS: Enoxaparin Sodium 40 MG/0.4 ML SYRINGE SC SCH ×2 (09:19→20:08)
[2021-03-25] MEDS: Lorazepam 2 MG/ML VIAL SLOW IVP SCH ×3 (09:19→20:08)
[2021-03-25] MEDS: Pantoprazole 40 MG VIAL IVP SCH (09:19)
[2021-03-25] MEDS: hydrALAZINE 20 MG/ML VIAL SLOW IVP PRN (20:08)
[2021-03-26] MEDS: Pantoprazole 40 MG VIAL IVP SCH (08:50)
[2021-03-26] MEDS: Enoxaparin Sodium 40 MG/0.4 ML SYRINGE SC SCH ×2 (08:50→20:09)
[2021-03-26] MEDS: DULoxetine 30 MG CAP PO SCH (08:50)
[2021-03-26] MEDS: Amlodipine 10 MG TAB PO SCH (08:51)
[2021-03-26] MEDS: Lorazepam 2 MG/ML VIAL SLOW IVP SCH (08:51)
[2021-03-26] MEDS: Sodium Bicarbonate Tab 325 MG TAB PO SCH ×2 (08:51→20:09)
[2021-03-26 14:39] LABS: Anion Gap 17 mmol/L (10-20); BUN (Urea Nitrogen) 22 mg/dL (9.8-20.1); CK (CPK) 60 U/L (29-168); Calc. Creatinine Clearance 58 mL/min (70-130); Calcium 9.3 mg/dL (7.8-10.44); Carbon Dioxide 24 mmol/L (23-31); Chloride 105 mmol/L (98-107); Glucose 189 mg/dL (80-115); Potassium 4.1 mmol/L (3.5-5.1); Sodium 142 mmol/L (136-145)
[2021-03-26] MEDS: Lorazepam 1 MG TAB PO SCH ×2 (14:39→20:09)
[2021-03-26] MEDS: HumaLOG 300 UNITS/3 ML VIAL SC PRN (16:40)
[2021-03-27 07:40] LABS: Anion Gap 13 mmol/L (10-20); BUN (Urea Nitrogen) 21 mg/dL (9.8-20.1); Calc. Creatinine Clearance 62 mL/min (70-130); Calcium 8.8 mg/dL (7.8-10.44); Carbon Dioxide 26 mmol/L (23-31); Chloride 106 mmol/L (98-107); Glucose 157 mg/dL (80-115); Potassium 4.2 mmol/L (3.5-5.1); Sodium 141 mmol/L (136-145)
[2021-03-27] MEDS: Sodium Bicarbonate 50 MEQ in Sodium Chloride 0.45% 1,000 ML IV SCH ×2 (08:30→17:39)
[2021-03-27] MEDS: Sodium Bicarbonate Tab 325 MG TAB PO SCH ×2 (09:28→21:05)
[2021-03-27] MEDS: DULoxetine 30 MG CAP PO SCH (09:28)
[2021-03-27] MEDS: Amlodipine 10 MG TAB PO SCH (09:29)
[2021-03-27] MEDS: Enoxaparin Sodium 40 MG/0.4 ML SYRINGE SC SCH ×2 (09:30→21:05)
[2021-03-27] MEDS: Lorazepam 1 MG TAB PO SCH ×3 (09:30→21:05)
[2021-03-27] MEDS: Losartan 25 MG TAB PO SCH (09:33)
[2021-03-27] MEDS: HumaLOG 300 UNITS/3 ML VIAL SC PRN (12:05)
[2021-03-27] MEDS ORDERED: Sodium Bicarbonate 50 MEQ in Sodium Chloride 0.45% 1,000 ML IV SCH (18:38)
[2021-03-28 08:05] LABS: Anion Gap 13 mmol/L (10-20); BUN (Urea Nitrogen) 21 mg/dL (9.8-20.1); Calc. Creatinine Clearance 61 mL/min (70-130); Calcium 9.1 mg/dL (7.8-10.44); Carbon Dioxide 30 mmol/L (23-31); Chloride 105 mmol/L (98-107); Glucose 152 mg/dL (80-115); Potassium 4.1 mmol/L (3.5-5.1); Sodium 144 mmol/L (136-145)
[2021-03-28] MEDS: Amlodipine 10 MG TAB PO SCH (08:12)
[2021-03-28] MEDS: Sodium Bicarbonate Tab 325 MG TAB PO SCH ×2 (08:12→21:17)
[2021-03-28] MEDS: Lorazepam 1 MG TAB PO SCH ×3 (08:12→21:17)
[2021-03-28] MEDS: Enoxaparin Sodium 40 MG/0.4 ML SYRINGE SC SCH ×2 (08:12→21:17)
[2021-03-28] MEDS: DULoxetine 30 MG CAP PO SCH (08:12)
[2021-03-28] MEDS: Losartan 25 MG TAB PO SCH (08:12)
[2021-03-28] MEDS: HumaLOG 300 UNITS/3 ML VIAL SC PRN (21:24)
[2021-03-29 07:39] LABS: Anion Gap 12 mmol/L (10-20); BUN (Urea Nitrogen) 22 mg/dL (9.8-20.1); Calc. Creatinine Clearance 59 mL/min (70-130); Calcium 8.7 mg/dL (7.8-10.44); Carbon Dioxide 30 mmol/L (23-31); Chloride 106 mmol/L (98-107); Glucose 148 mg/dL (80-115); Potassium 3.9 mmol/L (3.5-5.1); Sodium 144 mmol/L (136-145)
[2021-03-29] MEDS: Sodium Bicarbonate Tab 325 MG TAB PO SCH ×2 (09:26→20:25)
[2021-03-29] MEDS: DULoxetine 30 MG CAP PO SCH (09:26)
[2021-03-29] MEDS: Lorazepam 1 MG TAB PO SCH ×3 (09:26→20:25)
[2021-03-29] MEDS: Enoxaparin Sodium 40 MG/0.4 ML SYRINGE SC SCH (09:26)
[2021-03-29] MEDS: Amlodipine 10 MG TAB PO SCH (09:26)
[2021-03-29 10:27] LABS: SARS-CoV-2 PCR by NAA Not Detected (NotDetected)
[2021-03-30 07:34] LABS: #Basophils 0.1 thou/uL (0.0-0.2); #Eosinphils 0.1 thou/uL (0.0-0.7); #Lymphocytes 2.1 thou/uL (1.20-3.40); #Monocytes 0.5 thou/uL (0.11-0.59); %Basophils 1.5 % (0.0-1.0); %Eosinophils 2.9 % (0.0-10.0); %Lymphocytes 43.1 % (21.0-51.0); %Monocytes 10.9 % (0.0-10.0); %Neutrophils 41.5 % (42.0-75.0); Hemoglobin 11.7 g/dL (12.0-16.0); Mean Corpuscular HGB CONC 32.9 g/dL (32.0-36.0); Mean Corpuscular Hemoglobin 30.6 pg (27.0-31.0); Mean Corpuscular Volume 92.9 fL (78.0-98.0); Mean Platelet Volume 8.6 fL (7.4-10.4); Platelet Count 209 thou/uL (130-400); RBC Distribution Width 12.2 % (11.5-14.5); Red Blood Cell (RBC) Count 3.83 mill/uL (4.20-5.40); White Blood Cell (WBC) Count 4.9 thou/uL (4.8-10.8)
[2021-03-30] MEDS: Enoxaparin Sodium 60 MG/0.6 ML SYRINGE SC SCH (08:43)
[2021-03-30] MEDS: Amlodipine 10 MG TAB PO SCH (08:43)
[2021-03-30] MEDS: Lorazepam 1 MG TAB PO SCH ×3 (08:43→20:53)
[2021-03-30] MEDS: Sodium Bicarbonate Tab 325 MG TAB PO SCH ×2 (08:43→20:54)
[2021-03-30] MEDS: DULoxetine 30 MG CAP PO SCH (08:43)
[2021-03-31] MEDS: Lorazepam 1 MG TAB PO SCH ×3 (08:15→21:03)
[2021-03-31] MEDS: Enoxaparin Sodium 60 MG/0.6 ML SYRINGE SC SCH (08:15)
[2021-03-31] MEDS: Sodium Bicarbonate Tab 325 MG TAB PO SCH ×2 (08:16→21:02)
[2021-03-31] MEDS: DULoxetine 30 MG CAP PO SCH (08:16)
[2021-03-31] MEDS: Amlodipine 10 MG TAB PO SCH (08:16)
[2021-03-31] MEDS ORDERED: DULoxetine 30 MG CAP PO SCH (12:15)
[2021-04-01] MEDS: Amlodipine 10 MG TAB PO SCH (08:04)
[2021-04-01] MEDS: Sodium Bicarbonate Tab 325 MG TAB PO SCH ×2 (08:04→22:00)
[2021-04-01] MEDS: Lorazepam 1 MG TAB PO SCH ×3 (08:05→22:00)
[2021-04-01] MEDS: Enoxaparin Sodium 60 MG/0.6 ML SYRINGE SC SCH (08:05)
[2021-04-01] MEDS: DULoxetine 60 MG CAP PO SCH (08:05)
[2021-04-01 11:56] LABS: Anion Gap 12 mmol/L (10-20); BUN (Urea Nitrogen) 21 mg/dL (9.8-20.1); Calc. Creatinine Clearance 59 mL/min (70-130); Calcium 8.9 mg/dL (7.8-10.44); Carbon Dioxide 28 mmol/L (23-31); Chloride 105 mmol/L (98-107); Glucose 159 mg/dL (80-115); Sodium 141 mmol/L (136-145)
[2021-04-01] MEDS: HumaLOG 300 UNITS/3 ML VIAL SC PRN (22:03)
[2021-04-02] MEDS: HumaLOG 300 UNITS/3 ML VIAL SC PRN ×2 (05:12→18:10)
[2021-04-02] MEDS: Amlodipine 10 MG TAB PO SCH (08:16)
[2021-04-02] MEDS: Enoxaparin Sodium 60 MG/0.6 ML SYRINGE SC SCH (08:18)
[2021-04-02] MEDS: Lorazepam 1 MG TAB PO SCH ×4 (08:18→21:24)
[2021-04-02] MEDS: DULoxetine 60 MG CAP PO SCH (08:19)
[2021-04-02] MEDS: Sodium Bicarbonate Tab 325 MG TAB PO SCH ×2 (08:19→21:23)
[2021-04-02] MEDS: Atorvastatin Calcium 40 MG TAB PO SCH (21:24)
[2021-04-03] MEDS: Lorazepam 1 MG TAB PO SCH ×3 (08:12→20:51)
[2021-04-03] MEDS: DULoxetine 60 MG CAP PO SCH (08:12)
[2021-04-03] MEDS: Amlodipine 10 MG TAB PO SCH (08:12)
[2021-04-03] MEDS: Sodium Bicarbonate Tab 325 MG TAB PO SCH ×2 (08:13→20:50)
[2021-04-03] MEDS: Enoxaparin Sodium 60 MG/0.6 ML SYRINGE SC SCH (08:13)
[2021-04-03] MEDS: HumaLOG 300 UNITS/3 ML VIAL SC PRN ×2 (16:59→21:01)
[2021-04-03] MEDS: Atorvastatin Calcium 40 MG TAB PO SCH (20:50)
[2021-04-04] MEDS: Sodium Bicarbonate Tab 325 MG TAB PO SCH ×2 (08:46→20:38)
[2021-04-04] MEDS: DULoxetine 60 MG CAP PO SCH (08:46)
[2021-04-04] MEDS: Enoxaparin Sodium 60 MG/0.6 ML SYRINGE SC SCH (08:46)
[2021-04-04] MEDS: Lorazepam 1 MG TAB PO SCH ×3 (08:47→20:38)
[2021-04-04] MEDS: Amlodipine 10 MG TAB PO SCH (08:48)
[2021-04-04] MEDS: HumaLOG 300 UNITS/3 ML VIAL SC PRN ×2 (12:55→18:30)
[2021-04-04] MEDS: Atorvastatin Calcium 40 MG TAB PO SCH (20:38)
[2021-04-05 08:03] VITALS: TEMP 97.8
[2021-04-05] MEDS: Sodium Bicarbonate Tab 325 MG TAB PO SCH (08:26)
[2021-04-05] MEDS: Lorazepam 1 MG TAB PO SCH (08:27)
[2021-04-05] MEDS: Amlodipine 10 MG TAB PO SCH (08:27)
[2021-04-05] MEDS: DULoxetine 60 MG CAP PO SCH (08:27)
[2021-04-05] MEDS: Enoxaparin Sodium 60 MG/0.6 ML SYRINGE SC SCH (08:28)
[2021-04-05 08:29] VITALS: BP 119/77
[2021-04-05 21:32] LABS: SARS-CoV-2 PCR by NAA Not Detected (NotDetected)
== END 2021-04-05 14:22 | DRG 871 ==
LOC: ERS 02:21 → ERHOLD 04:57 → IMCU/EMU 12:32 → 2NO 03-18 15:44 → T4-B 03-24 14:43
PROVIDERS: ADMIT Family Medicine; ATTEND Family Medicine
PROC: 5A09457 Assistance with Respiratory Ventilation, 24-96 Consecutive Hours, Continuous Positive Airway Pressure (ICD-10-PCS; 2021-03-14)
PROC: 4A10X4Z Monitoring of Central Nervous Electrical Activity, External Approach (ICD-10-PCS; principal; 2021-03-17)
PROC: 0DH67UZ Insertion of Feeding Device into Stomach, Via Natural or Artificial Opening (ICD-10-PCS; 2021-03-21)
DX: A41.9 Sepsis, unspecified organism (principal); J96.01 Acute respiratory failure with hypoxia; G93.41 Metabolic encephalopathy; I21.A1 Myocardial infarction type 2; C90.00 Multiple myeloma not having achieved remission; E87.2 Acidosis; N17.9 Acute kidney failure, unspecified; N30.00 Acute cystitis without hematuria; M62.82 Rhabdomyolysis; E87.0 Hyperosmolality and hypernatremia; E66.2 Morbid (severe) obesity with alveolar hypoventilation; Z68.41 Body mass index [BMI] 40.0-44.9, adult; I50.32 Chronic diastolic (congestive) heart failure; I13.0 Hypertensive heart and chronic kidney disease with heart failure and stage 1 through stage 4 chronic kidney disease, or unspecified chronic kidney disease; R65.20 Severe sepsis without septic shock; I25.10 Atherosclerotic heart disease of native coronary artery without angina pectoris; G47.33 Obstructive sleep apnea (adult) (pediatric); G89.29 Other chronic pain; J44.9 Chronic obstructive pulmonary disease, unspecified; Z96.643 Presence of artificial hip joint, bilateral; R29.6 Repeated falls; E78.5 Hyperlipidemia, unspecified; E87.5 Hyperkalemia; H16.429 Pannus (corneal), unspecified eye; Z66 Do not resuscitate; E11.22 Type 2 diabetes mellitus with diabetic chronic kidney disease; F41.9 Anxiety disorder, unspecified; N18.30 Chronic kidney disease, stage 3 unspecified; Z20.822 Contact with and (suspected) exposure to COVID-19; E78.00 Pure hypercholesterolemia, unspecified; E86.0 Dehydration; E87.6 Hypokalemia; E55.9 Vitamin D deficiency, unspecified; F32.89 Other specified depressive episodes; Z91.040 Latex allergy status; Z79.899 Other long term (current) drug therapy; Z88.8 Allergy status to other drugs, medicaments and biological substances; Z86.73 Personal history of transient ischemic attack (TIA), and cerebral infarction without residual deficits; Z90.49 Acquired absence of other specified parts of digestive tract; Z79.4 Long term (current) use of insulin
CPT/HCPCS: 36415; 36416; 36600; 70450; 70551; 71045; 74018; 76770; 80048; 80053; 80074; 80202; 80306; 80307; 81003; 81015; 82140; 82306; 82550; 82553; 82570; 82805; 83605; 83880; 84100; 84145; 84156; 84300; 84443; 84484; 84540; 85014; 85018; 85025; 85049; 85520; 86780; 87040; 87086; 87389; 93005; 93010; 93306; 94660; 95712; 95819; 95957; 96365; 96366; 96368; 96375; C9113; J0360; J0692; J1650; J1815; J1940; J2001; J2060; J3370; J3480; J3490; J7070; J7120; U0002; U0003; U0005